=== PATIENT | male | born 1985 ===

== ENCOUNTER 2017-12-16 04:47 | Inpatient (IN) | payer MEDICAID ==
[2017-12-16] MEDS ORDERED: SODIUM CHLORIDE 0.9% FLUSH 10 ML FLUSH IVF (06:00)
[2017-12-16] MEDS: PIPERACIL-TAZO 4.5 GM PREMIX 100 ML IV (06:08)
[2017-12-16 06:10] LABS: AUTOMATED NEUTROPHIL # 6.7 TH/MM3 (1.8-7.7); BASOPHIL # 0.1 TH/MM3 (0-0.2); BASOPHIL % 0.8 % (0.0-2.0); EOSINOPHIL # 2.8 TH/MM3 (0-0.4); EOSINOPHIL % 22.1 % (0.0-4.0); HEMATOCRIT 33.7 % (39.0-51.0); HEMO FLAGS DIFF FINAL; LYMPH % 17.7 % (9.0-44.0); LYMPHOCYTE # 2.3 TH/MM3 (1.0-4.8); MEAN CELL VOLUME 80.8 FL (80.0-100.0); MEAN CORPUSCULAR HEMOGLOBIN 26.3 PG (27.0-34.0); MEAN CORPUSCULAR HGB CONC 32.5 % (32.0-36.0); MONO % 7.5 % (0.0-8.0); NEUT % 51.9 % (16.0-70.0); PLATELET COUNT 399 TH/MM3 (150-450); RED BLOOD COUNT 4.18 MIL/MM3 (4.50-5.90); RED CELL DISTRIBUTION WIDTH 14.4 % (11.6-17.2); WHITE BLOOD COUNT 12.9 TH/MM3 (4.0-11.0)
[2017-12-16] MEDS: ACETAMINOPHEN 325 MG TAB PO (06:11)
[2017-12-16] MEDS: VANCOMYCIN INJ 1,000 MG in SODIUM CHLOR 0.9% 250 ML INJ 250 ML IV (06:14)
[2017-12-16 06:30] LABS: WESTERGREN SEDIMENTATION RATE 57 mm/hr (0-15)
[2017-12-16 06:43] LABS: ALKALINE PHOSPHATASE 90 U/L (45-117); TOTAL BILIRUBIN ADULT 0.9 MG/DL (0.2-1.0); TOTAL PROTEIN 8.8 GM/DL (6.4-8.2)
[2017-12-16 06:56] LABS: ALBUMIN 3.3 GM/DL (3.4-5.0); ALT (GPT) 26 U/L (12-78); ANION GAP 6 MEQ/L (5-15); BICARBONATE 26.8 MEQ/L (21.0-32.0); BLOOD UREA NITROGEN 12 MG/DL (7-18); C-REACTIVE PROTEIN 0.62 MG/DL (0.00-0.30); CALCIUM 8.4 MG/DL (8.5-10.1); CHLORIDE 106 MEQ/L (98-107); CREATININE 0.94 MG/DL (0.60-1.30); GLOMERULAR FILTRATION RATE 94 ML/MIN (>89); GLUCOSE,RANDOM 77 MG/DL (74-106); SODIUM (NA) 139 MEQ/L (136-145)
[2017-12-16 06:58] LABS: AST (GOT) 39 U/L (15-37)
[2017-12-16] MEDS: SODIUM CHLOR 0.9% 1000 ML INJ 1,000 ML IV ×3 (08:00→19:52)
[2017-12-16] MEDS ORDERED: ACETAMINOPHEN 325 MG TAB PO (10:30)
[2017-12-16] MEDS ORDERED: Vancomycin Consult Pharmacy 1 EA OTHER (10:30)
[2017-12-16] MEDS: LIDOCAINE HCL 1% PF 5 ML SYRINGE OTHER (12:00)
[2017-12-16] MEDS: PHENYLEPH/NS 1000 MCG/10 ML SYR IV (12:00)
[2017-12-16] MEDS: ROCURONIUM INJ 50 MG/5 ML SYRINGE IV PUSH (12:00)
[2017-12-16] MEDS: PROPOFOL 200 MG/20 ML AMP IV (12:00)
[2017-12-16] MEDS: PIPERACIL-TAZO 3.375 GM PREMIX 50 ML IV ×2 (13:00→19:52)
[2017-12-16] MEDS: VANCOMYCIN INJ 1,750 MG in SODIUM CHLORID 0.9% 500 ML INJ 500 ML IV (14:00)
[2017-12-16] MEDS ORDERED: NEOMYCIN/POLYMYXIN 1 ML G.U. IRRIGANT ×2 (17:59→18:50)
[2017-12-16] MEDS: BUPIVACAINE HCL PF 0.5% 30 ML VIAL (18:29)
[2017-12-16] MEDS: LIDOCAINE HCL 2% PF 10 ML VIAL (18:39)
[2017-12-16] MEDS ORDERED: BACITRACIN TOP OINT 15 GM TUBE (19:10)
[2017-12-16] MEDS ORDERED: DO NOT ADM ANY ANTICOAGULANT DRUGS (19:23)
[2017-12-16] MEDS ORDERED: MIDAZOLAM HCL 2 MG/2 ML VIAL (19:36)
[2017-12-16] MEDS: *morphine SULFATE 4 MG/ML PERIprocedure ONLY ×2 (19:47→20:00)
[2017-12-16] MEDS: KETOROLAC TROMETHAMINE 30 MG/ML (IVP) VIAL IV PUSH (21:39)
[2017-12-17] MEDS: PIPERACIL-TAZO 3.375 GM PREMIX 50 ML IV ×4 (00:40→18:45)
[2017-12-17] MEDS: VANCOMYCIN INJ 1,750 MG in SODIUM CHLORID 0.9% 500 ML INJ 500 ML IV ×2 (00:42→16:58)
[2017-12-17] MEDS: KETOROLAC TROMETHAMINE 30 MG/ML (IVP) VIAL IV PUSH ×2 (09:22→17:49)
[2017-12-17] MEDS: SODIUM CHLOR 0.9% 1000 ML INJ 1,000 ML IV (18:44)
[2017-12-18] MEDS: PIPERACIL-TAZO 3.375 GM PREMIX 50 ML IV ×3 (00:53→17:57)
[2017-12-18] MEDS ORDERED: PHARMACY ORDERED LAB (01:45)
[2017-12-18] MEDS: VANCOMYCIN INJ 1,750 MG in SODIUM CHLORID 0.9% 500 ML INJ 500 ML IV ×2 (03:53→14:00)
[2017-12-18 09:15] LABS: AUTOMATED NEUTROPHIL # 5.7 TH/MM3 (1.8-7.7); BASOPHIL # 0.1 TH/MM3 (0-0.2); BASOPHIL % 0.5 % (0.0-2.0); EOSINOPHIL # 2.6 TH/MM3 (0-0.4); HEMATOCRIT 33.3 % (39.0-51.0); HEMO FLAGS DIFF FINAL; HEMOGLOBIN 10.5 GM/DL (13.0-17.0); LYMPH % 14.6 % (9.0-44.0); LYMPHOCYTE # 1.6 TH/MM3 (1.0-4.8); MEAN CELL VOLUME 82.2 FL (80.0-100.0); MEAN CORPUSCULAR HEMOGLOBIN 25.9 PG (27.0-34.0); MEAN CORPUSCULAR HGB CONC 31.6 % (32.0-36.0); NEUT % 51.9 % (16.0-70.0); PLATELET COUNT 348 TH/MM3 (150-450); RED BLOOD COUNT 4.05 MIL/MM3 (4.50-5.90); RED CELL DISTRIBUTION WIDTH 14.7 % (11.6-17.2)
[2017-12-18] MEDS: SODIUM CHLOR 0.9% 1000 ML INJ 1,000 ML IV ×2 (10:00)
[2017-12-18] MEDS ORDERED: diphenhydrAMINE HCL 25 MG CAP PO (11:15)
[2017-12-18] MEDS ORDERED: BETAMETHASONE DIPROPIONATE 0.05% CREAM 15 GM TOPICAL (13:00)
[2017-12-18] MEDS: PHARMACY ORDERED LAB (13:45)
[2017-12-18 14:35] LABS: CREATININE 1.24 MG/DL (0.60-1.30); GLOMERULAR FILTRATION RATE 68 ML/MIN (>89)
[2017-12-18 14:44] LABS: VANCOMYCIN TROUGH 19.5 MCG/ML (5.0-10.0)
[2017-12-18] MEDS: BETAMETHASONE DIPROPIONATE 0.05% OINT 15 GM TUBE TOPICAL ×2 (17:57→21:32)
[2017-12-18] MEDS: LEVOFLOXACIN 750 MG PREMIX INJ 150 ML IV (21:33)
[2017-12-18] MEDS: ENOXAPARIN SODIUM 40 MG/0.4 ML SYRINGE SQ (21:33)
[2017-12-18] MEDS: LISINOPRIL 10 MG TAB PO (21:33)
[2017-12-18] MEDS: KETOROLAC TROMETHAMINE 30 MG/ML (IVP) VIAL IV PUSH (21:46)
[2017-12-18] MEDS ORDERED: KETOROLAC TROMETHAMINE 30 MG/ML (IVP) VIAL IM (22:30)
[2017-12-18] MEDS: KETOROLAC TROMETHAMINE 60 MG/2 ML (IM) VIAL IM (23:10)
[2017-12-18] MEDS: LEVOFLOXACIN 750 MG TAB PO (23:10)
[2017-12-19] MEDS ORDERED: PHARMACY ORDERED LAB (01:45)
[2017-12-19] MEDS: BETAMETHASONE DIPROPIONATE 0.05% OINT 15 GM TUBE TOPICAL ×2 (09:58→20:24)
[2017-12-19] MEDS: LISINOPRIL 10 MG TAB PO ×2 (10:07→11:29)
[2017-12-19 11:40] LABS: AUTOMATED NEUTROPHIL # 7.4 TH/MM3 (1.8-7.7); BASOPHIL # 0.2 TH/MM3 (0-0.2); BASOPHIL % 1.3 % (0.0-2.0); EOSINOPHIL % 16.4 % (0.0-4.0); HEMATOCRIT 34.2 % (39.0-51.0); HEMO FLAGS DIFF FINAL; HEMOGLOBIN 10.9 GM/DL (13.0-17.0); LYMPH % 10.5 % (9.0-44.0); LYMPHOCYTE # 1.3 TH/MM3 (1.0-4.8); MEAN CELL VOLUME 81.4 FL (80.0-100.0); MEAN CORPUSCULAR HGB CONC 31.9 % (32.0-36.0); MEAN PLATELET VOLUME 7.2 FL (7.0-11.0); MONO % 9.8 % (0.0-8.0); MONOCYTE # 1.2 TH/MM3 (0-0.9); PLATELET COUNT 337 TH/MM3 (150-450); RED CELL DISTRIBUTION WIDTH 14.8 % (11.6-17.2)
[2017-12-19] MEDS: ENOXAPARIN SODIUM 40 MG/0.4 ML SYRINGE SQ (18:18)
[2017-12-19] MEDS: LEVOFLOXACIN 750 MG PREMIX INJ 150 ML IV (22:56)
[2017-12-20 07:47] LABS: CREATININE 1.35 MG/DL (0.60-1.30); GLOMERULAR FILTRATION RATE 62 ML/MIN (>89)
[2017-12-20] MEDS: LISINOPRIL 10 MG TAB PO (08:50)
[2017-12-20] MEDS: BETAMETHASONE DIPROPIONATE 0.05% OINT 15 GM TUBE TOPICAL ×2 (08:52→20:20)
[2017-12-20] MEDS: SODIUM CHLOR 0.9% 1000 ML INJ 1,000 ML IV ×2 (11:42→20:21)
[2017-12-20] MEDS: KETOROLAC TROMETHAMINE 10 MG TAB PO (17:52)
[2017-12-20] MEDS: ENOXAPARIN SODIUM 40 MG/0.4 ML SYRINGE SQ (17:53)
[2017-12-20] MEDS: LEVOFLOXACIN 750 MG PREMIX INJ 150 ML IV (23:05)
[2017-12-21] MEDS: KETOROLAC TROMETHAMINE 10 MG TAB PO (03:48)
[2017-12-21] MEDS: SODIUM CHLOR 0.9% 1000 ML INJ 1,000 ML IV ×2 (05:45→15:25)
[2017-12-21] MEDS: LISINOPRIL 10 MG TAB PO (07:34)
[2017-12-21] MEDS: BETAMETHASONE DIPROPIONATE 0.05% OINT 15 GM TUBE TOPICAL (07:34)
[2017-12-21 10:55] LABS: ANION GAP 8 MEQ/L (5-15); BLOOD UREA NITROGEN 14 MG/DL (7-18); CALCIUM 8.9 MG/DL (8.5-10.1); CHLORIDE 107 MEQ/L (98-107); CREATININE 1.32 MG/DL (0.60-1.30); GLOMERULAR FILTRATION RATE 64 ML/MIN (>89); GLUCOSE,RANDOM 87 MG/DL (74-106); POTASSIUM 4.2 MEQ/L (3.5-5.1); SODIUM (NA) 139 MEQ/L (136-145)
[2017-12-21] MEDS: METOPROLOL TARTRATE 50 MG TAB PO (12:42)
== END 2017-12-21 18:39 | disposition home or self-care (01) | DRG 513 ==
LOC: NEPC 04:47 → NEDA 07:31 → NEDH 10:02 → N07A 16:50
PROC: 0X6R0Z3 Detachment at Left Middle Finger, Low, Open Approach (ICD-10-PCS; principal; 2017-12-16 18:08)
DX: M86.642 Other chronic osteomyelitis, left hand (principal); N17.9 Acute kidney failure, unspecified; B95.61 Methicillin susceptible Staphylococcus aureus infection as the cause of diseases classified elsewhere; L30.9 Dermatitis, unspecified; Z79.2 Long term (current) use of antibiotics; Z79.899 Other long term (current) drug therapy; Z91.013 Allergy to seafood
CPT/HCPCS: 73130; 76937; 80048; 80053; 80202; 82565; 85025; 85652; 86140; 86403; 87015; 87040; 87070; 87102; 87116; 87147; 87186; 87205; 87206; 88305; 88311; 96365; 96368; 99285-25